=== PATIENT | female | born 1960 | race African-American/Black ===

== ENCOUNTER 2021-03-19 11:18 | Inpatient (IN) | payer OTHER ==
[2021-03-19 11:53] VITALS: BMI 32.4
[2021-03-19] MEDS ORDERED: MAG HYDROX/AL HYDROX/SIMETH 30 ML UNIT-DOSE CUP PO PRN (12:56)
[2021-03-19] MEDS ORDERED: MAGNESIUM CITRATE 300 ML BOTTLE PO PRN (12:56)
[2021-03-19] MEDS ORDERED: IBUPROFEN 400 MG TABLET (FP) PO PRN (12:56)
[2021-03-19] MEDS ORDERED: BISMUTH SUBSALICYLATE 524 MG/30 ML PO PRN (12:56)
[2021-03-19] MEDS ORDERED: MAGNESIUM HYDROX 2400MG/30ML ORAL SUSPENSION 30 ML CUP PO PRN (12:56)
[2021-03-19] MEDS ORDERED: NICOTINE POLACRILEX 2 MG GUM BUC PRN (12:56)
[2021-03-19] MEDS ORDERED: MENTHOL/PHENOL 1 EACH UD MM PRN (12:56)
[2021-03-19] MEDS ORDERED: ONDANSETRON *ODT* 4 MG TABLET SL PRN (12:56)
[2021-03-19] MEDS ORDERED: ACETAMINOPHEN 325 MG TABLET (FP) PO PRN ×2 (12:56)
[2021-03-19] MEDS ORDERED: ALBUTEROL SO4 HFA INHALER IH PRN (12:59)
[2021-03-19] MEDS: hydrOXYzine PAMOATE 25 MG CAPSULE (FP) PO SCH ×3 (13:48→22:39)
[2021-03-19] MEDS: NICOTINE 7 MG/24 HOURS TOPICAL PATCH TD SCH (13:50)
[2021-03-19] MEDS: BUDESONIDE/FORMETEROL FUMARATE 80/4.5 mcg INHALER IH SCH ×2 (13:50→22:39)
[2021-03-19] MEDS ORDERED: GABAPENTIN 400 MG CAPSULE PO SCH (14:00)
[2021-03-19 15:24] LABS: ALBUMIN 3.6 g/dl (3.4-5.0); CALCIUM 9.7 mg/dL (8.5-10.1)
[2021-03-19 15:27] LABS: CREATININE 0.7 mg/dL (0.55-1.3)
[2021-03-19] MEDS: PRENATAL VITAMINS W/ FOLIC ACID TABLET (FP) PO SCH (15:27)
[2021-03-19 15:29] LABS: BILIRUBIN,TOTAL 0.7 mg/dL (0.2-1); TOT PROT 7.8 g/dl (6.4-8.2)
[2021-03-19 15:42] LABS: HEMATOCRIT 43.1 % (32.4-45.2); HEMOGLOBIN 13.9 GM/dL (10.7-15.3); MCH 25.5 pg (25.7-33.7); MCHC 32.2 g/dl (32.0-36.0); MEAN CELL VOLUME 79.4 fl (80-96); MEAN PLT VOLUME 8.7 fl (7.5-11.1); PLATELET COUNT 177 10^3/uL (134-434); RBC 5.43 M/mm3 (3.60-5.2); RDW 14.8 % (11.6-15.6); WHITE BLOOD COUNT 6.9 K/mm3 (4.0-10.0)
[2021-03-19] MEDS ORDERED: LISINOPRIL 10 MG TABLET PO ONE (18:04)
[2021-03-19] MEDS: METHOCARBAMOL 500 MG TABLET PO PRN (18:13)
[2021-03-19] MEDS ORDERED: MELATONIN 5 MG TABLETS PO SCH (22:00)
[2021-03-19] MEDS ORDERED: THIAMINE HCL 100 MG TABLET (FP) PO SCH (22:00)
[2021-03-19] MEDS ORDERED: cloNIDine HCL 0.1 MG TABLET PO ONE (22:02)
[2021-03-20] MEDS ORDERED: METHADONE HCL 40 MG DISPERSABLE TABLET ONE (04:10)
[2021-03-20] MEDS ORDERED: METHADONE HCL 10 MG TABLET ONE (04:10)
[2021-03-20] MEDS ORDERED: METHADONE 120 MG, METHADONE 20 MG PO SCH (06:00)
[2021-03-20] MEDS: GABAPENTIN 400 MG CAPSULE PO SCH ×2 (06:13→13:32)
[2021-03-20] MEDS: hydrOXYzine PAMOATE 25 MG CAPSULE (FP) PO SCH ×3 (06:13→13:32)
[2021-03-20] MEDS: METHOCARBAMOL 500 MG TABLET PO PRN (06:14)
[2021-03-20] MEDS ORDERED: metFORMIN HCL 500 MG TABLET (FP) PO SCH (07:00)
[2021-03-20] MEDS: NICOTINE 7 MG/24 HOURS TOPICAL PATCH TD SCH (09:54)
[2021-03-20] MEDS: PRENATAL VITAMINS W/ FOLIC ACID TABLET (FP) PO SCH (09:54)
[2021-03-20] MEDS ORDERED: METHADONE HCL 40 MG DISPERSABLE TABLET PO SCH (10:00)
[2021-03-20] MEDS ORDERED: LISINOPRIL 20 MG TABLET PO SCH (10:00)
[2021-03-20] MEDS: BUDESONIDE/FORMETEROL FUMARATE 80/4.5 mcg INHALER IH SCH (10:37)
[2021-03-20 12:45] VITALS: BP 108/83; PULSE 53; TEMP 96.9
== END 2021-03-20 13:47 | disposition home or self-care (01) | DRG 773 ==
LOC: YASAS 11:18 → Y3N 11:24 → UNDOADMIN 11:24
PROVIDERS: ADMIT Allergy & Immunology; ATTEND Allergy & Immunology
PROC: HZ2ZZZZ Detoxification Services for Substance Abuse Treatment (ICD-10-PCS; principal; 2021-03-19)
DX: F13.230 Sedative, hypnotic or anxiolytic dependence with withdrawal, uncomplicated (principal); F11.20 Opioid dependence, uncomplicated; F17.210 Nicotine dependence, cigarettes, uncomplicated; I10 Essential (primary) hypertension; E78.00 Pure hypercholesterolemia, unspecified; E11.9 Type 2 diabetes mellitus without complications; Z79.84 Long term (current) use of oral hypoglycemic drugs; Z59.0 Homelessness
CPT/HCPCS: 36415; 80053; 82962; 85027; 86780; J0735

== ENCOUNTER 2022-10-08 15:41 | Inpatient (IN) | payer OTHER ==
[2022-10-08 18:28] VITALS: BMI 33.5
[2022-10-08] MEDS ORDERED: MAGNESIUM HYDROX 2400MG/30ML ORAL SUSPENSION 30 ML CUP PO PRN (19:39)
[2022-10-08] MEDS ORDERED: NALOXONE HCL 0.4 MG/ML VIAL IM PRN (19:39)
[2022-10-08] MEDS ORDERED: MAG HYDROX/AL HYDROX/SIMETH 30 ML UNIT-DOSE CUP PO PRN (19:39)
[2022-10-08] MEDS ORDERED: NALOXONE HCL (KLOXXADO) 8 MG SPRAY NS PRN (19:39)
[2022-10-08] MEDS ORDERED: POLYETHYLENE GLYCOL (HEALTHYLAX) 3350 17 GM PACKET PO PRN (19:39)
[2022-10-08] MEDS ORDERED: guaiFENesin 200 MG/10 ML 10 ML UNIT-DOSE CUPS PO PRN (19:39)
[2022-10-08] MEDS ORDERED: P-EPHED 60MG/TRIPROLIDI 2.5MG TABLET PO PRN (19:39)
[2022-10-08] MEDS ORDERED: LOPERAMIDE HCL 2 MG CAPSULE PO PRN (19:39)
[2022-10-08] MEDS ORDERED: BENZOCAINE/MENTHOL (CHLORASEPTIC ) LOZENGE MM PRN (19:39)
[2022-10-08] MEDS ORDERED: ALBUTEROL SO4 HFA INHALER IH PRN (21:52)
[2022-10-08] MEDS ORDERED: TUBERCULIN PPD 5 TU/0.1ML VIAL ID ONE (22:34)
[2022-10-08] MEDS: THIAMINE HCL 100 MG TABLET (FP) PO SCH (22:36)
[2022-10-08] MEDS: BUDESONIDE/FORMETEROL FUMARATE 80/4.5 mcg INHALER IH SCH (22:44)
[2022-10-09] MEDS: PRENATAL VITAMINS W/ FOLIC ACID TABLET (FP) PO SCH (10:22)
[2022-10-09] MEDS: BUDESONIDE/FORMETEROL FUMARATE 80/4.5 mcg INHALER IH SCH ×2 (10:22→21:12)
[2022-10-09] MEDS: methaDONE 80 MG, methaDONE 20 MG PO SCH (10:23)
[2022-10-09 11:07] LABS: HEMATOCRIT 41.5 % (32.4-45.2); HEMOGLOBIN 13.1 GM/dL (10.7-15.3); MCH 24.9 pg (25.7-33.7); MCHC 31.6 g/dl (32.0-36.0); MEAN CELL VOLUME 78.9 fl (80-96); MEAN PLT VOLUME 8.9 fl (7.5-11.1); PLATELET COUNT 177 10^3/uL (134-434); RBC 5.26 M/mm3 (3.60-5.2); RDW 14.4 % (11.6-15.6); WHITE BLOOD COUNT 4.2 K/mm3 (4.0-10.0)
[2022-10-09 11:43] LABS: CALCIUM 9.2 mg/dL (8.5-10.1)
[2022-10-09 11:44] LABS: ALBUMIN 3.3 g/dl (3.4-5.0); BLOOD UREA NITROGEN 14.9 mg/dL (7-18)
[2022-10-09 11:47] LABS: CREATININE 0.7 mg/dL (0.55-1.3)
[2022-10-09 11:48] LABS: BILIRUBIN,TOTAL 0.5 mg/dL (0.2-1)
[2022-10-09] MEDS: NIFEdipine E.R. 30 MG TABLET PO SCH (11:50)
[2022-10-09] MEDS: GABAPENTIN 300 MG CAPSULE PO SCH ×2 (11:50→21:11)
[2022-10-09 12:33] LABS: SYPHILIS W/ RPR CONF NON-REACTIVE (NONREACTIVE)
[2022-10-09] MEDS: THIAMINE HCL 100 MG TABLET (FP) PO SCH (21:11)
[2022-10-09] MEDS: ACETAMINOPHEN 325 MG TABLET (FP) PO PRN (21:12)
[2022-10-09] MEDS: MELATONIN 5 MG TABLETS PO PRN (21:12)
[2022-10-10] MEDS: methaDONE 80 MG, methaDONE 20 MG PO SCH (06:32)
[2022-10-10] MEDS: GABAPENTIN 300 MG CAPSULE PO SCH ×2 (10:01→21:55)
[2022-10-10] MEDS: PRENATAL VITAMINS W/ FOLIC ACID TABLET (FP) PO SCH (10:01)
[2022-10-10] MEDS: BUDESONIDE/FORMETEROL FUMARATE 80/4.5 mcg INHALER IH SCH ×2 (10:02→21:57)
[2022-10-10] MEDS: NIFEdipine E.R. 30 MG TABLET PO SCH (10:40)
[2022-10-10] MEDS: THIAMINE HCL 100 MG TABLET (FP) PO SCH (21:56)
[2022-10-10] MEDS: MELATONIN 5 MG TABLETS PO PRN (21:56)
[2022-10-10] MEDS: ACETAMINOPHEN 325 MG TABLET (FP) PO PRN (21:57)
[2022-10-11] MEDS: methaDONE 80 MG, methaDONE 20 MG PO SCH (06:13)
[2022-10-11] MEDS: IBUPROFEN 400 MG TABLET (FP) PO PRN (06:15)
[2022-10-11 09:39] LABS: EPI CELLS 23 /uL (0-25.1); HYALINE CASTS 1 /uL (0-3.1); PH,URINE 6.5 (5.0-8.0); URINE APPEARANCE CLEAR; URINE BACTERIA 95 /uL (0-1359); URINE BILIRUBIN NEGATIVE (NEGATIVE); URINE COLOR YELLOW; URINE GLUCOSE (UA) NEGATIVE (NEGATIVE); URINE KETONE NEGATIVE (NEGATIVE); URINE LEUK ESTERASE 1+ (NEGATIVE); URINE NITRITE NEGATIVE (NEGATIVE); URINE PROTEIN NEGATIVE (NEGATIVE); URINE RBC 8 /uL (0-23.9); URINE WBC 17 /uL (0-25.8)
[2022-10-11] MEDS: GABAPENTIN 300 MG CAPSULE PO SCH ×2 (10:10→21:47)
[2022-10-11] MEDS: NIFEdipine E.R. 30 MG TABLET PO SCH (10:10)
[2022-10-11] MEDS: PRENATAL VITAMINS W/ FOLIC ACID TABLET (FP) PO SCH (10:10)
[2022-10-11] MEDS: BUDESONIDE/FORMETEROL FUMARATE 80/4.5 mcg INHALER IH SCH ×2 (10:11→21:51)
[2022-10-11 11:33] LABS: URINE CRYSTALS FEW CA OXALATE /hpf
[2022-10-11] MEDS: MELATONIN 5 MG TABLETS PO PRN (21:47)
[2022-10-11] MEDS: THIAMINE HCL 100 MG TABLET (FP) PO SCH (21:47)
[2022-10-11] MEDS: ACETAMINOPHEN 325 MG TABLET (FP) PO PRN (21:48)
[2022-10-12] MEDS: methaDONE 80 MG, methaDONE 20 MG PO SCH (06:19)
[2022-10-12] MEDS ORDERED: cloNIDine HCL 0.1 MG TABLET PO ONE (06:30)
[2022-10-12] MEDS: BUDESONIDE/FORMETEROL FUMARATE 80/4.5 mcg INHALER IH SCH ×2 (10:06→22:04)
[2022-10-12] MEDS: NIFEdipine E.R. 30 MG TABLET PO SCH (10:06)
[2022-10-12] MEDS: PRENATAL VITAMINS W/ FOLIC ACID TABLET (FP) PO SCH (10:06)
[2022-10-12] MEDS: GABAPENTIN 300 MG CAPSULE PO SCH ×2 (10:06→22:03)
[2022-10-12] MEDS: IBUPROFEN 400 MG TABLET (FP) PO PRN (10:07)
[2022-10-12] MEDS: THIAMINE HCL 100 MG TABLET (FP) PO SCH (22:03)
[2022-10-12] MEDS: MELATONIN 5 MG TABLETS PO PRN (22:04)
[2022-10-13] MEDS: methaDONE 80 MG, methaDONE 20 MG PO SCH (06:05)
[2022-10-13] MEDS: NIFEdipine E.R 60 MG TABLET PO SCH (10:07)
[2022-10-13] MEDS: IBUPROFEN 400 MG TABLET (FP) PO PRN (10:07)
[2022-10-13] MEDS: GABAPENTIN 300 MG CAPSULE PO SCH ×2 (10:07→21:16)
[2022-10-13] MEDS: PRENATAL VITAMINS W/ FOLIC ACID TABLET (FP) PO SCH (10:08)
[2022-10-13] MEDS: BUDESONIDE/FORMETEROL FUMARATE 80/4.5 mcg INHALER IH SCH ×2 (10:09→21:22)
[2022-10-13] MEDS: THIAMINE HCL 100 MG TABLET (FP) PO SCH (21:16)
[2022-10-13] MEDS: MELATONIN 5 MG TABLETS PO PRN (21:18)
[2022-10-13] MEDS: ACETAMINOPHEN 325 MG TABLET (FP) PO PRN (21:19)
[2022-10-14] MEDS: methaDONE 80 MG, methaDONE 20 MG PO SCH (06:09)
[2022-10-14] MEDS: IBUPROFEN 400 MG TABLET (FP) PO PRN (06:10)
[2022-10-14] MEDS: GABAPENTIN 300 MG CAPSULE PO SCH ×2 (09:36→21:34)
[2022-10-14] MEDS: BUDESONIDE/FORMETEROL FUMARATE 80/4.5 mcg INHALER IH SCH ×2 (09:36→21:34)
[2022-10-14] MEDS: PRENATAL VITAMINS W/ FOLIC ACID TABLET (FP) PO SCH (09:36)
[2022-10-14] MEDS: NIFEdipine E.R 60 MG TABLET PO SCH (09:36)
[2022-10-14] MEDS: ACETAMINOPHEN 325 MG TABLET (FP) PO PRN (09:38)
[2022-10-14] MEDS: cloNIDine HCL 0.1 MG TABLET PO PRN (14:28)
[2022-10-14] MEDS: DULoxetine HCL 30 MG CAPSULE.DR PO SCH (16:27)
[2022-10-14] MEDS: THIAMINE HCL 100 MG TABLET (FP) PO SCH (21:34)
[2022-10-14] MEDS: SUVOREXANT 10 MG TABLET PO PRN (21:37)
[2022-10-14 23:55] VITALS: RESP 18
[2022-10-15] MEDS: IBUPROFEN 400 MG TABLET (FP) PO PRN (06:21)
[2022-10-15] MEDS: cloNIDine HCL 0.1 MG TABLET PO PRN (06:21)
[2022-10-15] MEDS: methaDONE 80 MG, methaDONE 20 MG PO SCH (06:22)
[2022-10-15] MEDS: BUDESONIDE/FORMETEROL FUMARATE 80/4.5 mcg INHALER IH SCH ×2 (10:33→23:13)
[2022-10-15] MEDS: GABAPENTIN 300 MG CAPSULE PO SCH ×2 (10:33→21:46)
[2022-10-15] MEDS: NIFEdipine E.R 60 MG TABLET PO SCH (10:33)
[2022-10-15] MEDS: PRENATAL VITAMINS W/ FOLIC ACID TABLET (FP) PO SCH (10:33)
[2022-10-15] MEDS: DULoxetine HCL 30 MG CAPSULE.DR PO SCH (11:56)
[2022-10-15] MEDS: ACETAMINOPHEN 325 MG TABLET (FP) PO PRN (21:46)
[2022-10-15] MEDS: THIAMINE HCL 100 MG TABLET (FP) PO SCH (21:46)
[2022-10-15] MEDS: SUVOREXANT 10 MG TABLET PO PRN (21:47)
[2022-10-16] MEDS ORDERED: NIFEdipine E.R 60 MG TABLET PO SCH (06:00)
[2022-10-16] MEDS: methaDONE 80 MG, methaDONE 20 MG PO SCH (06:07)
[2022-10-16] MEDS: NIFEdipine E.R 60 MG TABLET PO SCH (06:07)
[2022-10-16] MEDS: PRENATAL VITAMINS W/ FOLIC ACID TABLET (FP) PO SCH (09:28)
[2022-10-16] MEDS: cloNIDine HCL 0.1 MG TABLET PO PRN ×2 (09:29→21:35)
[2022-10-16] MEDS: BUDESONIDE/FORMETEROL FUMARATE 80/4.5 mcg INHALER IH SCH ×2 (09:29→21:35)
[2022-10-16] MEDS: GABAPENTIN 300 MG CAPSULE PO SCH ×2 (09:29→21:35)
[2022-10-16] MEDS: ACETAMINOPHEN 325 MG TABLET (FP) PO PRN ×2 (09:29→21:36)
[2022-10-16] MEDS: THIAMINE HCL 100 MG TABLET (FP) PO SCH (21:35)
[2022-10-16] MEDS: SUVOREXANT 10 MG TABLET PO PRN (21:35)
[2022-10-17] MEDS: ACETAMINOPHEN 325 MG TABLET (FP) PO PRN ×2 (06:00→21:50)
[2022-10-17] MEDS: methaDONE 80 MG, methaDONE 20 MG PO SCH (06:03)
[2022-10-17] MEDS: NIFEdipine E.R 60 MG TABLET PO SCH (06:04)
[2022-10-17] MEDS: cloNIDine HCL 0.1 MG TABLET PO PRN ×2 (08:04→21:49)
[2022-10-17] MEDS: PRENATAL VITAMINS W/ FOLIC ACID TABLET (FP) PO SCH (09:08)
[2022-10-17] MEDS: GABAPENTIN 300 MG CAPSULE PO SCH ×2 (09:09→21:49)
[2022-10-17] MEDS: BUDESONIDE/FORMETEROL FUMARATE 80/4.5 mcg INHALER IH SCH ×2 (09:12→21:51)
[2022-10-17] MEDS: SUVOREXANT 10 MG TABLET PO PRN (21:49)
[2022-10-17] MEDS: THIAMINE HCL 100 MG TABLET (FP) PO SCH (21:50)
[2022-10-18] MEDS: NIFEdipine E.R 60 MG TABLET PO SCH (06:10)
[2022-10-18] MEDS: methaDONE 80 MG, methaDONE 20 MG PO SCH (06:10)
[2022-10-18] MEDS: IBUPROFEN 400 MG TABLET (FP) PO PRN ×2 (06:11→21:47)
[2022-10-18] MEDS: GABAPENTIN 300 MG CAPSULE PO SCH ×2 (09:28→21:47)
[2022-10-18] MEDS: cloNIDine HCL 0.1 MG TABLET PO PRN (09:28)
[2022-10-18] MEDS: PRENATAL VITAMINS W/ FOLIC ACID TABLET (FP) PO SCH (09:29)
[2022-10-18] MEDS: BUDESONIDE/FORMETEROL FUMARATE 80/4.5 mcg INHALER IH SCH ×2 (09:29→21:50)
[2022-10-18] MEDS: THIAMINE HCL 100 MG TABLET (FP) PO SCH (21:47)
[2022-10-18] MEDS: SUVOREXANT 10 MG TABLET PO PRN (21:47)
[2022-10-19] MEDS: IBUPROFEN 400 MG TABLET (FP) PO PRN (06:06)
[2022-10-19] MEDS: methaDONE 80 MG, methaDONE 20 MG PO SCH (06:06)
[2022-10-19] MEDS: NIFEdipine E.R 60 MG TABLET PO SCH (06:06)
[2022-10-19] MEDS: cloNIDine HCL 0.1 MG TABLET PO PRN ×2 (09:18→21:39)
[2022-10-19] MEDS: PRENATAL VITAMINS W/ FOLIC ACID TABLET (FP) PO SCH (09:18)
[2022-10-19] MEDS: GABAPENTIN 300 MG CAPSULE PO SCH ×2 (09:18→21:39)
[2022-10-19] MEDS: ACETAMINOPHEN 325 MG TABLET (FP) PO PRN (09:19)
[2022-10-19] MEDS: BUDESONIDE/FORMETEROL FUMARATE 80/4.5 mcg INHALER IH SCH ×2 (09:21→21:39)
[2022-10-19] MEDS: SUVOREXANT 15 MG TABLET PO PRN (21:38)
[2022-10-19] MEDS: THIAMINE HCL 100 MG TABLET (FP) PO SCH (21:39)
[2022-10-20] MEDS: methaDONE 80 MG, methaDONE 20 MG PO SCH (06:10)
[2022-10-20] MEDS: NIFEdipine E.R 60 MG TABLET PO SCH (06:11)
[2022-10-20] MEDS: IBUPROFEN 400 MG TABLET (FP) PO PRN (06:11)
[2022-10-20] MEDS: cloNIDine HCL 0.1 MG TABLET PO PRN ×2 (09:16→20:59)
[2022-10-20] MEDS: PRENATAL VITAMINS W/ FOLIC ACID TABLET (FP) PO SCH (09:16)
[2022-10-20] MEDS: hydrOXYzine PAMOATE 25 MG CAPSULE (FP) PO PRN ×2 (09:16→20:59)
[2022-10-20] MEDS: GABAPENTIN 300 MG CAPSULE PO SCH ×2 (09:16→21:01)
[2022-10-20] MEDS: BUDESONIDE/FORMETEROL FUMARATE 80/4.5 mcg INHALER IH SCH ×2 (09:17→21:00)
[2022-10-20] MEDS: ACETAMINOPHEN 325 MG TABLET (FP) PO PRN ×2 (09:17→21:06)
[2022-10-20] MEDS: THIAMINE HCL 100 MG TABLET (FP) PO SCH (21:01)
[2022-10-20] MEDS: SUVOREXANT 15 MG TABLET PO PRN (21:07)
[2022-10-21] MEDS: NIFEdipine E.R 60 MG TABLET PO SCH (06:29)
[2022-10-21] MEDS: methaDONE 80 MG, methaDONE 20 MG PO SCH (06:29)
[2022-10-21] MEDS: IBUPROFEN 400 MG TABLET (FP) PO PRN (06:29)
[2022-10-21] MEDS: cloNIDine HCL 0.1 MG TABLET PO PRN ×2 (07:59→21:29)
[2022-10-21] MEDS: PRENATAL VITAMINS W/ FOLIC ACID TABLET (FP) PO SCH (09:15)
[2022-10-21] MEDS: GABAPENTIN 300 MG CAPSULE PO SCH ×2 (09:15→21:26)
[2022-10-21] MEDS: BUDESONIDE/FORMETEROL FUMARATE 80/4.5 mcg INHALER IH SCH ×2 (09:17→21:27)
[2022-10-21] MEDS: hydrOXYzine PAMOATE 25 MG CAPSULE (FP) PO PRN ×2 (09:19→21:29)
[2022-10-21] MEDS: ACETAMINOPHEN 325 MG TABLET (FP) PO PRN (09:19)
[2022-10-21] MEDS: THIAMINE HCL 100 MG TABLET (FP) PO SCH (21:26)
[2022-10-21] MEDS: SUVOREXANT 15 MG TABLET PO PRN (21:28)
[2022-10-22] MEDS: cloNIDine HCL 0.1 MG TABLET PO PRN ×2 (06:15→21:31)
[2022-10-22] MEDS: methaDONE 80 MG, methaDONE 20 MG PO SCH (06:15)
[2022-10-22] MEDS: IBUPROFEN 400 MG TABLET (FP) PO PRN (06:16)
[2022-10-22] MEDS: NIFEdipine E.R 60 MG TABLET PO SCH (06:17)
[2022-10-22] MEDS: GABAPENTIN 300 MG CAPSULE PO SCH ×2 (09:51→21:31)
[2022-10-22] MEDS: PRENATAL VITAMINS W/ FOLIC ACID TABLET (FP) PO SCH (09:51)
[2022-10-22] MEDS: hydrOXYzine PAMOATE 25 MG CAPSULE (FP) PO PRN ×2 (09:52→21:32)
[2022-10-22] MEDS: BUDESONIDE/FORMETEROL FUMARATE 80/4.5 mcg INHALER IH SCH ×2 (09:53→21:35)
[2022-10-22] MEDS: THIAMINE HCL 100 MG TABLET (FP) PO SCH (21:31)
[2022-10-22] MEDS: SUVOREXANT 15 MG TABLET PO PRN (21:32)
[2022-10-23] MEDS: methaDONE 80 MG, methaDONE 20 MG PO SCH (06:07)
[2022-10-23] MEDS: NIFEdipine E.R 60 MG TABLET PO SCH (06:08)
[2022-10-23] MEDS: ACETAMINOPHEN 325 MG TABLET (FP) PO PRN ×2 (06:08→21:49)
[2022-10-23] MEDS: GABAPENTIN 300 MG CAPSULE PO SCH ×2 (10:07→21:50)
[2022-10-23] MEDS: PRENATAL VITAMINS W/ FOLIC ACID TABLET (FP) PO SCH (10:07)
[2022-10-23] MEDS: BUDESONIDE/FORMETEROL FUMARATE 80/4.5 mcg INHALER IH SCH ×2 (10:08→22:04)
[2022-10-23] MEDS: hydrOXYzine PAMOATE 25 MG CAPSULE (FP) PO PRN ×2 (10:11→21:50)
[2022-10-23] MEDS: IBUPROFEN 400 MG TABLET (FP) PO PRN (10:11)
[2022-10-23] MEDS: cloNIDine HCL 0.1 MG TABLET PO PRN (21:50)
[2022-10-23] MEDS: THIAMINE HCL 100 MG TABLET (FP) PO SCH (21:50)
[2022-10-23] MEDS: SUVOREXANT 15 MG TABLET PO PRN (21:50)
[2022-10-24] MEDS: methaDONE 80 MG, methaDONE 20 MG PO SCH (06:08)
[2022-10-24] MEDS: IBUPROFEN 400 MG TABLET (FP) PO PRN ×2 (06:08→13:30)
[2022-10-24] MEDS: NIFEdipine E.R 60 MG TABLET PO SCH (06:09)
[2022-10-24] MEDS: PRENATAL VITAMINS W/ FOLIC ACID TABLET (FP) PO SCH (10:02)
[2022-10-24] MEDS: GABAPENTIN 300 MG CAPSULE PO SCH ×2 (10:03→21:57)
[2022-10-24] MEDS: BUDESONIDE/FORMETEROL FUMARATE 80/4.5 mcg INHALER IH SCH (10:03)
[2022-10-24] MEDS: ACETAMINOPHEN 325 MG TABLET (FP) PO PRN ×2 (10:04→21:57)
[2022-10-24] MEDS: hydrOXYzine PAMOATE 25 MG CAPSULE (FP) PO PRN ×2 (10:05→21:58)
[2022-10-24] MEDS: cloNIDine HCL 0.1 MG TABLET PO PRN ×2 (10:05→21:56)
[2022-10-24] MEDS: SUVOREXANT 15 MG TABLET PO PRN (21:56)
[2022-10-24] MEDS: THIAMINE HCL 100 MG TABLET (FP) PO SCH (21:57)
[2022-10-25] MEDS: BUDESONIDE/FORMETEROL FUMARATE 80/4.5 mcg INHALER IH SCH ×3 (00:14→22:00)
[2022-10-25] MEDS: methaDONE 80 MG, methaDONE 20 MG PO SCH (06:00)
[2022-10-25] MEDS: NIFEdipine E.R 60 MG TABLET PO SCH (06:01)
[2022-10-25] MEDS: ACETAMINOPHEN 325 MG TABLET (FP) PO PRN ×3 (06:03→21:58)
[2022-10-25] MEDS: PRENATAL VITAMINS W/ FOLIC ACID TABLET (FP) PO SCH (10:35)
[2022-10-25] MEDS: GABAPENTIN 300 MG CAPSULE PO SCH ×2 (10:35→21:57)
[2022-10-25] MEDS: hydrOXYzine PAMOATE 25 MG CAPSULE (FP) PO PRN ×2 (10:36→21:59)
[2022-10-25] MEDS: IBUPROFEN 400 MG TABLET (FP) PO PRN (13:30)
[2022-10-25] MEDS: cloNIDine HCL 0.1 MG TABLET PO PRN (21:57)
[2022-10-25] MEDS: THIAMINE HCL 100 MG TABLET (FP) PO SCH (21:57)
[2022-10-25] MEDS: SUVOREXANT 15 MG TABLET PO PRN (21:58)
[2022-10-26] MEDS: NIFEdipine E.R 60 MG TABLET PO SCH (06:01)
[2022-10-26] MEDS: methaDONE 80 MG, methaDONE 20 MG PO SCH (06:01)
[2022-10-26] MEDS: ACETAMINOPHEN 325 MG TABLET (FP) PO PRN (06:03)
[2022-10-26] MEDS: PRENATAL VITAMINS W/ FOLIC ACID TABLET (FP) PO SCH (10:11)
[2022-10-26] MEDS: GABAPENTIN 300 MG CAPSULE PO SCH ×2 (10:11→21:52)
[2022-10-26] MEDS: BUDESONIDE/FORMETEROL FUMARATE 80/4.5 mcg INHALER IH SCH ×2 (10:11→23:03)
[2022-10-26] MEDS: IBUPROFEN 400 MG TABLET (FP) PO PRN ×2 (10:12→21:53)
[2022-10-26] MEDS: cloNIDine HCL 0.1 MG TABLET PO PRN ×2 (10:13→21:51)
[2022-10-26] MEDS: hydrOXYzine PAMOATE 25 MG CAPSULE (FP) PO PRN ×2 (13:46→21:52)
[2022-10-26] MEDS: THIAMINE HCL 100 MG TABLET (FP) PO SCH (21:51)
[2022-10-26] MEDS: SUVOREXANT 15 MG TABLET PO PRN (21:51)
[2022-10-27] MEDS: methaDONE 80 MG, methaDONE 20 MG PO SCH (05:52)
[2022-10-27] MEDS: NIFEdipine E.R 60 MG TABLET PO SCH (05:52)
[2022-10-27] MEDS: ACETAMINOPHEN 325 MG TABLET (FP) PO PRN (05:53)
[2022-10-27] MEDS: PRENATAL VITAMINS W/ FOLIC ACID TABLET (FP) PO SCH (09:58)
[2022-10-27] MEDS: GABAPENTIN 300 MG CAPSULE PO SCH ×2 (09:58→21:36)
[2022-10-27] MEDS: BUDESONIDE/FORMETEROL FUMARATE 80/4.5 mcg INHALER IH SCH (09:59)
[2022-10-27] MEDS: IBUPROFEN 400 MG TABLET (FP) PO PRN ×2 (10:01→17:14)
[2022-10-27] MEDS: hydrOXYzine PAMOATE 25 MG CAPSULE (FP) PO PRN ×2 (10:02→21:37)
[2022-10-27] MEDS: SUVOREXANT 5 MG TABLET PO PRN (21:35)
[2022-10-27] MEDS: THIAMINE HCL 100 MG TABLET (FP) PO SCH (21:35)
[2022-10-27] MEDS: cloNIDine HCL 0.1 MG TABLET PO PRN (21:36)
[2022-10-28] MEDS: IBUPROFEN 400 MG TABLET (FP) PO PRN ×2 (06:02→17:13)
[2022-10-28] MEDS: NIFEdipine E.R 60 MG TABLET PO SCH (06:02)
[2022-10-28] MEDS: methaDONE 80 MG, methaDONE 20 MG PO SCH (06:02)
[2022-10-28] MEDS: GABAPENTIN 300 MG CAPSULE PO SCH ×2 (11:03→21:14)
[2022-10-28] MEDS: PRENATAL VITAMINS W/ FOLIC ACID TABLET (FP) PO SCH (11:04)
[2022-10-28] MEDS: hydrOXYzine PAMOATE 25 MG CAPSULE (FP) PO PRN ×2 (11:04→21:13)
[2022-10-28] MEDS: ACETAMINOPHEN 325 MG TABLET (FP) PO PRN (11:06)
[2022-10-28] MEDS: THIAMINE HCL 100 MG TABLET (FP) PO SCH (21:14)
[2022-10-28] MEDS: SUVOREXANT 5 MG TABLET PO PRN (21:15)
[2022-10-29] MEDS: NIFEdipine E.R 60 MG TABLET PO SCH (05:56)
[2022-10-29] MEDS: methaDONE 80 MG, methaDONE 20 MG PO SCH (05:56)
[2022-10-29] MEDS: ACETAMINOPHEN 325 MG TABLET (FP) PO PRN ×3 (05:56→17:33)
[2022-10-29 08:20] VITALS: TEMP 97.7
[2022-10-29] MEDS: GABAPENTIN 300 MG CAPSULE PO SCH ×2 (10:39→21:28)
[2022-10-29] MEDS: PRENATAL VITAMINS W/ FOLIC ACID TABLET (FP) PO SCH (10:39)
[2022-10-29] MEDS: cloNIDine HCL 0.1 MG TABLET PO PRN ×2 (10:40→21:28)
[2022-10-29] MEDS: hydrOXYzine PAMOATE 25 MG CAPSULE (FP) PO PRN ×2 (10:40→21:32)
[2022-10-29] MEDS: THIAMINE HCL 100 MG TABLET (FP) PO SCH (21:29)
[2022-10-29] MEDS: IBUPROFEN 400 MG TABLET (FP) PO PRN (21:31)
[2022-10-29] MEDS ORDERED: SUVOREXANT 5 MG TABLET PO PRN (22:00)
[2022-10-30] MEDS: NIFEdipine E.R 60 MG TABLET PO SCH (05:51)
[2022-10-30] MEDS: methaDONE 80 MG, methaDONE 20 MG PO SCH (05:51)
[2022-10-30] MEDS: ACETAMINOPHEN 325 MG TABLET (FP) PO PRN (05:52)
[2022-10-30 07:07] VITALS: BP 119/76; PULSE 69
[2022-10-30] MEDS: GABAPENTIN 300 MG CAPSULE PO SCH (10:01)
[2022-10-30] MEDS: PRENATAL VITAMINS W/ FOLIC ACID TABLET (FP) PO SCH (10:01)
[2022-10-30] MEDS: hydrOXYzine PAMOATE 25 MG CAPSULE (FP) PO PRN (10:02)
== END 2022-10-30 10:50 | disposition other institution (70) | DRG 773 ==
LOC: YASAS 15:41 → Y5N 21:52
PROVIDERS: ADMIT Allergy & Immunology; ATTEND Psychiatry & Neurology Pain Medicine
PROC: HZ2ZZZZ Detoxification Services for Substance Abuse Treatment (ICD-10-PCS; principal; 2022-10-08)
DX: F11.20 Opioid dependence, uncomplicated (principal); F14.20 Cocaine dependence, uncomplicated; F17.210 Nicotine dependence, cigarettes, uncomplicated; F19.282 Other psychoactive substance dependence with psychoactive substance-induced sleep disorder; F19.280 Other psychoactive substance dependence with psychoactive substance-induced anxiety disorder; I10 Essential (primary) hypertension; E78.5 Hyperlipidemia, unspecified; E11.9 Type 2 diabetes mellitus without complications; G62.9 Polyneuropathy, unspecified; L81.8 Other specified disorders of pigmentation; M54.50 Low back pain, unspecified; G89.29 Other chronic pain; R00.1 Bradycardia, unspecified; Z62.810 Personal history of physical and sexual abuse in childhood; Z86.19 Personal history of other infectious and parasitic diseases; Z99.89 Dependence on other enabling machines and devices; Z59.01 Sheltered homelessness; Z91.410 Personal history of adult physical and sexual abuse; Z28.310 Unvaccinated for COVID-19; Z28.9 Immunization not carried out for unspecified reason
CPT/HCPCS: 36415; 80053; 81003; 85027; 86780; 86803; 87522; 87811; C9803-CS; U0003; U0005